=== PATIENT | female | born 1940 | race African-American/Black ===

== ENCOUNTER 2020-09-20 16:26 | Inpatient (IN) | payer OTHER ==
[2020-09-20 16:53] VITALS: BMI 38.6
[2020-09-20] MEDS ORDERED: amLODIPine BESYLATE 10 MG TABLET (FP) PO ONE (17:25)
[2020-09-20] MEDS ORDERED: amLODIPine BESYLATE 5 MG TABLET (FP) ONE (17:45)
[2020-09-20 17:58] LABS: BASO % 2.1 % (0-2.0); EOS % 2.1 % (0-4.5); HEMATOCRIT 35.3 % (32.4-45.2); HEMOGLOBIN 11.2 GM/dL (10.7-15.3); LYMPH % 21.4 % (8-40); MCH 24.1 pg (25.7-33.7); MCHC 31.8 g/dl (32.0-36.0); MEAN CELL VOLUME 75.8 fl (80-96); MEAN PLT VOLUME 8.9 fl (7.5-11.1); MONO % 9.6 % (3.8-10.2); NEUT % 64.8 % (42.8-82.8); PLATELET COUNT 245 K/MM3 (134-434); RBC 4.66 M/mm3 (3.60-5.2); RDW 18.4 % (11.6-15.6); WHITE BLOOD COUNT 5.4 K/mm3 (4.0-10.0)
[2020-09-20 18:13] LABS: ALBUMIN 3.2 g/dl (3.4-5.0); BLOOD UREA NITROGEN 18.7 mg/dL (7-18); CALCIUM 9.6 mg/dL (8.5-10.1)
[2020-09-20 18:16] LABS: CREATININE 1.3 mg/dL (0.55-1.3)
[2020-09-20 18:18] LABS: BILIRUBIN,TOTAL 0.6 mg/dL (0.2-1); TOT PROT 7.9 g/dl (6.4-8.2)
[2020-09-20] MEDS ORDERED: hydrALAZINE HCL 20 MG/ML VIAL IVPUSH ONE ×2 (20:01→21:29)
[2020-09-20] MEDS ORDERED: hydrALAZINE HCL 20 MG/ML VIAL ONE ×2 (20:30→21:40)
[2020-09-20] MEDS ORDERED: LISINOPRIL 20 MG TABLET PO ONE (21:29)
[2020-09-20] MEDS ORDERED: NITROGLYCERIN 2% OINTMENT - 1GM PACKET TD ONE (21:30)
[2020-09-20] MEDS ORDERED: ACETAMINOPHEN 325 MG TABLET (FP) PO ONE (21:30)
[2020-09-20] MEDS ORDERED: ACETAMINOPHEN 325 MG TABLET (FP) ONE (21:40)
[2020-09-20] MEDS ORDERED: hydrALAZINE HCL 20 MG/ML VIAL IVPUSH PRN (22:55)
[2020-09-20] MEDS ORDERED: NITROGLYCERIN 2% OINTMENT - 1GM PACKET TD PRN (22:56)
[2020-09-20] MEDS ORDERED: PATIENT'S OWN MEDICATION (NON-FORMULARY) (Galantamine Hbr [Galantamine Er] 8 MG Cap24h.Pel PO SCH (23:00)
[2020-09-21 06:31] VITALS: TEMP 97.8
[2020-09-21] MEDS ORDERED: GLIMEPIRIDE 1 MG TABLET PO SCH (07:00)
[2020-09-21] MEDS ORDERED: sitaGLIPtin PHOSPHATE 50 MG TABLET PO SCH (07:00)
[2020-09-21] MEDS ORDERED: metFORMIN HCL 500 MG TABLET (FP) PO SCH (07:00)
[2020-09-21] MEDS: INSULIN SLIDING SCALE (NOVOLOG) 1 VIAL SQ SCH ×2 (08:02→11:43)
[2020-09-21] MEDS ORDERED: metFORMIN HCL 500 MG TABLET (FP) ONE (08:03)
[2020-09-21] MEDS ORDERED: sitaGLIPtin PHOSPHATE 50 MG TABLET ONE (08:03)
[2020-09-21] MEDS ORDERED: LISINOPRIL 20 MG TABLET ONE (09:21)
[2020-09-21] MEDS ORDERED: amLODIPine BESYLATE 5 MG TABLET (FP) ONE (09:21)
[2020-09-21] MEDS ORDERED: ALBUTEROL SO4 HFA INHALER IH SCH (10:00)
[2020-09-21] MEDS ORDERED: amLODIPine BESYLATE 5 MG TABLET (FP) PO SCH ×2 (10:00→10:08)
[2020-09-21] MEDS ORDERED: PATIENT'S OWN MEDICATION (NON-FORMULARY) (Sitagliptin Phos/Metformin Hcl [Janumet 50-1,000 PO SCH (10:00)
[2020-09-21] MEDS ORDERED: LISINOPRIL 20 MG TABLET PO SCH (10:00)
[2020-09-21] MEDS ORDERED: ACETAMINOPHEN 325 MG TABLET (FP) PO PRN (10:13)
[2020-09-21 16:32] VITALS: BP 159/59; PULSE 77
[2020-09-21] MEDS ORDERED: RIVAROXABAN 20 MG TABLET PO SCH (18:00)
[2020-09-21] MEDS ORDERED: ATORVASTATIN CA 10 MG TABLET (FP) PO SCH (22:00)
== END 2020-09-21 16:50 | disposition home or self-care (01) | DRG 305 ==
LOC: JER 16:26 → EDBD 21:45 → JERBED 21:45
PROVIDERS: ADMIT Internal Medicine; ATTEND Family Medicine
DX: I16.1 Hypertensive emergency (principal); I48.19 Other persistent atrial fibrillation; E11.9 Type 2 diabetes mellitus without complications; R42 Dizziness and giddiness; E78.5 Hyperlipidemia, unspecified
CPT/HCPCS: 36415; 70450-TC; 71045-TC-FY; 80053; 82550; 82962; 84443; 84484; 85025; 87086; 87186; 93005; 93010; 99285-25; C9803; U0003; U0005

== ENCOUNTER 2023-08-17 13:27 | Emergency (ER) | payer OTHER ==
[2023-08-17 13:33] VITALS: BP 179/69; PULSE 55; RESP 18; TEMP 98; BMI 31.0
[2023-08-17] MEDS ORDERED: IBUPROFEN 600 MG TABLET (FP) PO ONE (14:22)
[2023-08-17] MEDS ORDERED: diphenhydrAMINE HCL 25 MG CAPSULE (FP) PO ONE (14:22)
[2023-08-17] MEDS ORDERED: METHOCARBAMOL 500 MG TABLET ONE (14:22)
[2023-08-17] MEDS ORDERED: LIDOCAINE 4% PATCH TP ONE (14:23)
[2023-08-17] MEDS: LIDOCAINE 4% PATCH TP ONE (14:28)
[2023-08-17] MEDS: IBUPROFEN 600 MG TABLET (FP) PO ONE (14:28)
[2023-08-17] MEDS: diphenhydrAMINE HCL 25 MG CAPSULE (FP) PO ONE (14:28)
[2023-08-17] MEDS: METHOCARBAMOL 500 MG TABLET PO ONE (14:29)
[2023-08-17] MEDS ORDERED: FAMOTIDINE 10 MG TABLET ONE (14:49)
[2023-08-17] MEDS ORDERED: predniSONE 20 MG TABLET (UD) ONE (14:49)
[2023-08-17] MEDS: predniSONE 20 MG TABLET (UD) PO ONE (14:51)
[2023-08-17] MEDS: FAMOTIDINE 10 MG TABLET PO ONE (14:51)
[2023-08-17] MEDS ORDERED: LIDOCAINE PATCH REMOVAL MC ONE (22:00)
== END 2023-08-17 15:19 | disposition home or self-care (01) ==
LOC: JER 13:27
DX: R21 Rash and other nonspecific skin eruption (principal); M54.2 Cervicalgia; G89.29 Other chronic pain; T78.40XA Allergy, unspecified, initial encounter; L30.9 Dermatitis, unspecified
CPT/HCPCS: 99283-25